=== PATIENT | female | born 1960 ===

== ENCOUNTER 2016-12-20 19:58 | Emergency (ER) | payer OTHER ==
[2016-12-20 20:08] VITALS: BMI 23.9
[2016-12-20 20:11] VITALS: O2SAT 97
[2016-12-20] MEDS ORDERED: Albuterol-Ipratrop 3 mg / 0.5 (3 ml) UD IH STA ×2 (21:23→23:15)
--- NOTE | 2016-12-20 21:23 | ED PDOC ---
Arrival/HPI <Kassi,Landry - Last Filed: 12/20/16 22:10> - General Historian: Patient <SerafinMare Leonardo - Last Filed: 12/21/16 02:18> - General Chief Complaint: Cough, Cold, Congestion Time Seen by Provider: 12/20/16 21:15 - History of Present Illness Narrative History of Present Illness (Text): 12/21/16 02:13 56-year-old female presents today with a one Month history of cough. Patient states about 3 weeks ago she completed Zithromax after being seen by her primary care physician. Patient states she has a history of asthma. Patient states for the past 3 weeks the cough has continued despite cough medications. Patient states she's been using her nebulizer at home without improvement. She is now complaining of a tickle in the throat some nasal congestion with postnasal drip and some right ear pain. No vomiting or diarrhea. No chest pain or shortness of breath. Patient states the cough is sometimes dry and sometimes productive. patient's had similar symptoms recently. Patient is a smoker but states she has cut down significantly over the past 3 weeks due to the cough. Denies calf pain. Denies any recent travel. No other complaints ( Mare Betancourt) Past Medical History - Provider Review Nursing Documentation Reviewed: Yes - Travel History Have you recently traveled outside [place] w/in the past 3 mons?: No - Tetanus Immunization Tetanus Immunization: Unknown - Cardiac Hx Cardiac Disorders: No - Pulmonary Hx Respiratory Disorders: Yes Hx Asthma: Yes - Neurological Hx Neurological Disorder: No - HEENT Hx HEENT Disorder: No - Renal Hx Renal Disorder: No - Endocrine/Metabolic Hx Endocrine Disorders: No - Hematological/Oncological Hx Blood Disorders: No - Integumentary Hx Dermatological Disorder: No - Musculoskeletal/Rheumatological Hx Musculoskeletal Disorders: No - Gastrointestinal Hx Gastrointestinal Disorders: No - Genitourinary/Gynecological Hx Genitourinary Disorders: No - Psychiatric Hx Psychophysiologic Disorder: No Hx Substance Use: No <Mare Betancourt - Last Filed: 12/21/16 02:18> Family/Social History - Physician Review Nursing Documentation Reviewed: Yes Family/Social History: Unknown Family HX Smoking Status: Heavy Smoker > 10 Cigarettes Daily Hx Alcohol Use: No Hx Substance Use: No <Mare Betancourt - Last Filed: 12/21/16 02:18> Allergies/Home Meds <Landry Willett - Last Filed: 12/20/16 22:10> <Mare Betancourt - Last Filed: 12/21/16 02:18> Allergies/Adverse Reactions: Allergies No Known Allergies Allergy (Verified 12/20/16 20:08) Home Medications: Home Meds Medication Instructions Recorded Confirmed Albuterol HFA [Ventolin HFA 90 1 inh INH PRN PRN 12/20/16 12/20/16 mcg/actuation (8 g)] Promethazine HCl/Codeine 1 tsp PO QID PRN 12/20/16 12/20/16 [Prometh-Codein 6.25-10 mg/5 ml] Review of Systems - Review of Systems Constitutional: Fevers. absent: Fatigue ENT: Sore Throat, Sinus Congestion, Other (right ear pruritis) Respiratory: Cough. absent: SOB Cardiovascular: absent: Chest Pain, Palpitations Gastrointestinal: absent: Abdominal Pain, Constipation, Diarrhea, Nausea, Vomiting Genitourinary Female: absent: Dysuria, Frequency, Hematuria Musculoskeletal: absent: Arthralgias, Back Pain, Neck Pain Skin: absent: Rash, Pruritis Neurological: absent: Headache, Dizziness Psychiatric: absent: Anxiety, Depression <Mare Betancourt - Last Filed: 12/21/16 02:18> Physical Exam Vital Signs Reviewed: Yes Temperature: Afebrile Blood Pressure: Normal Pulse: Tachycardic Respiratory Rate: Normal Appearance: Positive for: Well-Appearing, Non-Toxic, Comfortable Pain Distress: None Mental Status: Positive for: Alert and Oriented X 3 - Systems Exam Head: Present: Atraumatic Conjunctiva: Present: Normal Ears: Present: Normal Mouth: Present: Moist Mucous Membranes Pharnyx: Present: Normal, Other (+ post nasal drip). No: ERYTHEMA, EXUDATE, TONSILS ENLARGED, Peritonsilar Swelling, Uvular Deviation Nose (External): Present: Atraumatic Nose (Internal): Present: Normal Inspection Neck: Present: Normal Range of Motion, Trachea Midline. No: Lymphadenopathy Respiratory/Chest: Present: Good Air Exchange, Rhonchi. No: Clear to Auscultation, Respiratory Distress, Accessory Muscle Use, Wheezes, Decreased Breath Sounds, Tachypneic Cardiovascular: Present: Regular Rate and Rhythm, Normal S1, S2. No: Murmurs Abdomen: Present: Normal Bowel Sounds. No: Tenderness, Distention, Peritoneal Signs, Rebound, Guarding Neurological: Present: GCS=15, Speech Normal Skin: Present: Warm, Dry, Normal Color. No: Rashes Psychiatric: Present: Alert, Oriented x 3 <Mare Betancourt - Last Filed: 12/21/16 02:18> Vital Signs Temp Pulse Resp BP Pulse Ox 12/21/16 01:00 97.6 F 12/21/16 00:39 95 H 20 123/75 97 12/20/16 20:08 98.6 F 100 H 16 123/68 97 Medical Decision Making <Landry Willett - Last Filed: 12/20/16 22:10> <Mare Betancourt - Last Filed: 12/21/16 02:18> ED Course and Treatment: 12/20/16 23:56 56-year-old female with a three-week history of cough. Chest x-ray shows no infiltrate or effusion Patient was given 2 DuoNeb as an prednisone Patient reassessment patient feeling slightly better still with cough. Still denies chest pain or shortness of breath. c/o post nasal drip. We will discharge home with Augmentin prednisone and albuterol and Flonase. Advised follow-up with a cage/vault supervisor within the next 2 days. Advised immediate return if symptoms worsen persist or if new concerning symptoms develop Patient verbalizes understanding of discharge instructions and need for immediate followup. all aspects of this case were discussed the attending of record. pt seen and evaluated by dr. willett; Impression: Bronchitis augmentin twice daily x 10 days prednisone daily x 4 days albuterol nebulizer 3 times daily flonase; 2sprays each notril once daily. follow up with the primary care physician within the next 2 days follow up with the cage/vault supervisor within the next 2 days return if symptoms worsen,persist or if new symptoms develop. (Mare Betancourt) - RAD Interpretation Radiology Orders: 12/20/16 21:15 CHEST TWO VIEWS (PA/LAT) [RAD] Stat - Medication Orders Current Medication Orders: Discontinued Medications Albuterol/Ipratropium (Duoneb 3 Mg/0.5 Mg (3 Ml) Ud) 3 ml IH STAT STA Stop: 05/08/17 21:24 Last Admin: 12/20/16 21:47 Dose: 3 ml Albuterol/Ipratropium (Duoneb 3 Mg/0.5 Mg (3 Ml) Ud) 3 ml IH STAT STA Stop: 12/20/16 23:16 Last Admin: 12/21/16 01:00 Dose: 3 ml Amoxicillin/Clavulanate Potassium (Augmentin 875 Mg-125 Mg Tab) 1 tab PO STAT STA PRN Reason: Protocol Stop: 12/20/16 23:19 Last Admin: 12/21/16 01:00 Dose: 1 tab Prednisone (Prednisone Tab) 60 mg PO STAT ONE Stop: 12/20/16 21:24 Last Admin: 12/20/16 21:47 Dose: 60 mg - PA / DISEASE INTERVENTION SPECIALIST / Resident Statement JOSE has reviewed & agrees with the documentation as recorded. / has examined the patient and agrees with the treatment plan. <Landry Willett - Last Filed: 12/20/16 22:10> Disposition/Present on Arrival <Landry Willett - Last Filed: 12/20/16 22:10> - Present on Arrival Any Indicators Present on Arrival: No History of DVT/PE: No History of Uncontrolled Diabetes: No Urinary Catheter: No History of Decub. Ulcer: No History Surgical Site Infection Following: None - Disposition Have Diagnosis and Disposition been Completed?: Yes Disposition Time: 21:23 Patient Plan: Discharge <Mare Betancourt - Last Filed: 12/21/16 02:18> - Disposition Diagnosis: Cough, Bronchitis Disposition: HOME/ ROUTINE Condition: GOOD Discharge Instructions (ExitCare): Acute Bronchitis (ED) Additional Instructions: augmentin twice daily x 10 days prednisone daily x 4 days albuterol nebulizer 3 times daily follow up with the primary care physician within the next 2 days follow up with the cage/vault supervisor within the next 2 days return if symptoms worsen,persist or if new symptoms develop. Prescriptions: Albuterol HFA [Ventolin HFA 90 mcg/actuation (8 g)] 2 puff IH [id number] PRN #1 inhaler PRN Reason: Cough Albuterol 0.083% [Albuterol 0.083% Inhal Merlene (2.5 mg/3 ml) UD] 1 vial IH TID PRN #1 packet PRN Reason: Cough Amoxicillin/Clavulanate [Augmentin 875 MG-125 MG] 1 tab PO BID #20 tab Fluticasone Nasal [Flonase] 2 spr NS DAILY #1 spr predniSONE [predniSONE Tab] 3 tab PO DAILY #12 tab Referrals: Amanda Dowell MD [Primary Care Provider] - Follow up with primary Amado Silveira MD [Staff Provider] - Follow up with primary Forms: WORK NOTE
[2016-12-20] MEDS ORDERED: Amoxicillin-Clav 875-125 mg Tab PO STA (23:18)
[2016-12-21 00:40] VITALS: BP 123/75; PULSE 95; RESP 20
[2016-12-21 01:42] VITALS: TEMP 97.6
--- NOTE | 2016-12-21 07:44 | RAD ---
HISTORY: cough x weeks COMPARISON: No prior. TECHNIQUE: Chest PA and lateral FINDINGS: LUNGS: No evidence of focal infiltrate or consolidation in the lungs PLEURA: No significant pleural effusion identified. No pneumothorax apparent. CARDIOVASCULAR: Normal. OSSEOUS STRUCTURES: No significant abnormalities. VISUALIZED UPPER ABDOMEN: Normal. OTHER FINDINGS: None. IMPRESSION: No radiographic evidence of pneumonia.
== END 2016-12-21 01:25 | disposition home or self-care (01) ==
LOC: ED 19:58
DX: J20.9 Acute bronchitis, unspecified (principal); F17.210 Nicotine dependence, cigarettes, uncomplicated